=== PATIENT | male | born 1955 | race African-American/Black ===

== ENCOUNTER 2020-04-07 21:09 | Emergency (ER) | payer SELFPAY ==
[~2020-04-07] VITALS: Ht 172.7 cm; Wt 72.6 kg
--- NOTE | 2020-04-07 21:41 | Emergency Room Report ---
History of Present Illness General Chief Complaint: Behavioral Complaint Source: EMS, Law Enforcement Present Illness HPI This is a proximately 71-year-old male who came in as a Dewey Berry. He was found lying down to the street so police put him on a 5150 hold. Patient appeared to be very intoxicated. There is no evidence of any trauma. He is uncooperative. Unable to get any other history from this patient because of his intoxication state. Allergies: Coded Allergies: No Known Allergies (Unverified , 04/07/20) COVID-19 Screening COVID-19 risk:Contact w/high r: No Has patient experienced nam: No COVID-19 Testing performed FLYING TEACHER: No Patient History Past Medical History: see triage record, old chart reviewed, unable to obtain Past Surgical History: unable to obtain Family History: unable to obtain Social History: unable to obtain Immunizations: other Reviewed Nursing Documentation: PMH: Agreed; PSxH: Agreed Nursing Documentation-PMH Past Medical History Deferred: Pt Cognitively Impaired Review of Systems All Other Systems: limited - secondary to intoxicated state Physical Exam Vital Signs Date Time Temp Pulse Resp B/P (MAP) Pulse Ox O2 Delivery O2 Flow Rate FiO2 04/07/20 21:07 98.4 100 18 140/92 (108) 98 Room Air Vitals unremarkable Sp02 EP Interpretation: reviewed, normal General Appearance: no apparent distress, non-toxic, other - Agitated, intoxicated Head: normocephalic, atraumatic Eyes: PERRL, EOMI ENT: oropharynx normal Neck: supple/symm/no masses Respiratory: effort normal, no rhonchi, no wheezing Cardiovascular: no murmur, gallop, rub Gastrointestinal: non-tender, no mass, non-distended, no rebound/guarding, normal bowel sounds Musculoskeletal: moves extm spontaneously Neurologic: sensory intact, motor strength/tone normal Skin: no rash, normal palpation Medical Decision Making Homeless Attestation I, The treating physician, Dr Marcus Ware, has assessed and agrees that patient is medically stable for discharge to an outpatient disposition. Diagnostic Impression: Primary Impression: Alcohol intoxication Qualified Codes: F10.920 - Alcohol use, unspecified with intoxication, uncom plicated ER Course This patient presented as a Dewey Berry with altered mental status. He was very intoxicated. He slept through the night is now awake and talking coherently. He able to give his name and date of . He denies suicidal thoughts or homicidal thoughts. He is medically clear. I see no criteria for 5150 at this moment in time. Patient said he wants to leave. Last Vital Signs Date Time Temp Pulse Resp B/P (MAP) Pulse Ox O2 Delivery O2 Flow Rate FiO2 04/07/20 21:07 98.4 100 18 140/92 (108) 98 Room Air Status: improved Disposition: HOME, SELF-CARE Condition: Stable Referrals: NOT CHOSEN IPA/MD,REFERRING (PCP) Additional Instructions: Abstain from alcohol. Follow up with your doctor in 7 days. Return if symptoms worsen. Marcus Ware MD Apr 07, 2020 21:41
[2020-04-07] MEDS ORDERED: LORazepam Inj 2mg/ml 1ml IV ONE (21:45)
[2020-04-07] MEDS ORDERED: Haloperidol 5mg/ml Inj IM ONE (21:45)
[2020-04-07 22:02] LABS: BASOPHILS % (AUTO) 1.7 % (0.0-2.0); LYMPHOCYTES % (AUTO) 37.2 % (20.0-45.0); MEAN CORPUSCULAR VOLUME 95 FL (80-99); MONOCYTES % (AUTO) 7.9 % (1.0-10.0); NEUTROPHILS % (AUTO) 52.3 % (45.0-75.0); PLATELET COUNT 286 K/UL (150-450); RED BLOOD COUNT 4.93 M/UL (4.70-6.10); RED CELL DISTRIBUTION WIDTH 13.3 % (11.6-14.8); WHITE BLOOD COUNT 10.6 K/UL (4.8-10.8)
[2020-04-07 22:03] VITALS: BP 128/79
[2020-04-07 22:11] LABS: ANION GAP 14 mmol/L (5-15); BLOOD UREA NITROGEN 23 mg/dL (7-18); CALCIUM 9.5 MG/DL (8.5-10.1); CARBON DIOXIDE 23 MMOL/L (21-32); CHLORIDE 105 MMOL/L (98-107); POTASSIUM 3.5 MMOL/L (3.5-5.1); SODIUM 141 MMOL/L (136-145)
--- NOTE | 2020-04-07 22:14 | NUR ---
Patient [address] ED by [address]/o ETOH and behavioral complaint. patient was found laying down the street . New orders received by EDP and carried and carried out. safety measures taken. Will continue to monitor the patient.
[2020-04-07 22:15] LABS: ALANINE AMINOTRANSFERASE 18 U/L (12-78); ALBUMIN 4.3 G/DL (3.4-5.0); ALBUMIN/GLOBULIN RATIO 1.3 (1.0-2.7); ALKALINE PHOSPHATASE 48 U/L (46-116); ASPARTATE AMINO TRANSFERASE 22 U/L (15-37); BILIRUBIN,TOTAL 0.6 MG/DL (0.2-1.0)
[2020-04-07] MEDS ORDERED: DiphenhydrAMINE 50mg/ml Inj IVP ONE (22:30)
[2020-04-07] MEDS ORDERED: Haloperidol Decanoate (Long Acting) 50mg Inj IM ONE (22:30)
--- NOTE | 2020-04-07 23:26 | NUR ---
All work blood and urine were colected and sent to the lab . All medications were given without any adverse effect. Will continue to monitor.
--- NOTE | 2020-04-08 00:15 | NUR ---
Pte in bed stable without any ideas to harm himself or others. Vital signs taken and reported. Will continue to monitor the patient during the shift.
[2020-04-08 02:19] VITALS: BP 130/89
--- NOTE | 2020-04-08 02:26 | NUR ---
Pte in bed stable spleeping at this time at this time. Will continue to monitor.
--- NOTE | 2020-04-08 05:11 | NUR ---
Pte gave his name and his date of to the Doctor.
[2020-04-08 09:27] VITALS: BP 130/80
--- NOTE | 2020-04-08 09:29 | NUR ---
discharge instruction given to patient alert oriented ambulating steady gait
== END 2020-04-08 09:30 | disposition home or self-care (01) ==
LOC: EDBD 21:09 → EMR 21:35
DX: F10.129 Alcohol abuse with intoxication, unspecified (principal)
CPT/HCPCS: 36415; 80053; 80307; 85025; 96372; 96374; 96375; 99284; G0480; J1200; J1630; J1631